=== PATIENT | female | born 1955 | race Caucasian/White ===

== ENCOUNTER → 2016-11-23 | Outpatient (CLI) | payer BC ==
[~2016-11-23] MED LIST: MULT-963 PO
--- OUTSIDE RECORDS SUMMARY | 2016-11-23 13:20 | XMS REPORT ---
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
--- NOTE | 2016-11-23 19:26 | Diagnostic Imaging Report ---
Bilateral screening mammogram. The current study was also evaluated with a Computer Aided Detection (CAD) system. INDICATION: Screening. No current complaints stated on the questionnaire. COMPARISON: 11/22/15. FINDINGS: The breasts are composed of scattered fibroglandular densities. There are scattered benign-appearing calcifications. Allowing for technique and positional differences, no suspicious change is seen. IMPRESSION: No significant change. ACR BI-RADS Category 2: Benign findings. Result letter will be mailed to the patient. Note: At least 10% of breast cancer is not imaged by mammography. Dictated by: Dictated on workstation # [id number]
== END ==
LOC: RAD 13:16
PROVIDERS: ATTEND Family Medicine
DX: Z12.31 Encounter for screening mammogram for malignant neoplasm of breast (principal)

== ENCOUNTER → 2018-10-22 | Outpatient (CLI) | payer BC ==
--- NOTE | 2018-10-22 12:51 | Diagnostic Imaging Report ---
INDICATION: Routine screening. COMPARISON: 11/23/2016 and 11/22/2015. TECHNIQUE: 2D and 3D bilateral screening mammography was performed with CAD. FINDINGS: Scattered fibroglandular densities are identified bilaterally. There are benign calcifications bilaterally. No mass or malignant appearing microcalcifications are seen. The axillae are unremarkable. IMPRESSION: No mammographic features suspicious for malignancy are identified. ACR BI-RADS Category 2: Benign findings. Result letter will be mailed to the patient. Note: At least 10% of breast cancer is not imaged by mammography. Dictated by: Dictated on workstation # [id number]
== END ==
LOC: RAD 10:52
PROVIDERS: ATTEND Family Medicine
DX: Z12.31 Encounter for screening mammogram for malignant neoplasm of breast (principal)
CPT/HCPCS: 77067

== ENCOUNTER 2019-02-07 05:28 | Emergency (ER) | payer BC ==
[~2019-02-07] VITALS: Ht 149.9 cm; Wt 81.6 kg
[2019-02-07 05:59] LABS: BASOPHILS % (AUTO) 0 % (0-10); EOSINOPHILS # (AUTO) 0.2 10^3/uL (0.0-0.3); EOSINOPHILS % (AUTO) 2 % (0-10); HEMATOCRIT 39 % (35-52); HEMOGLOBIN 13.2 G/DL (11.5-16.0); LYMPHOCYTES # (AUTO) 2.8 X 10^3 (1.0-4.0); LYMPHOCYTES % (AUTO) 34 % (12-44); MEAN CORPUSCULAR HEMOGLOBIN 32 PG (25-34); MEAN CORPUSCULAR HGB CONC 34 G/DL (32-36); MEAN CORPUSCULAR VOLUME 94 FL (80-99); MEAN PLATELET VOLUME 9.3 FL (7.4-10.4); MONOCYTES # (AUTO) 0.9 X 10^3 (0.0-1.0); MONOCYTES % (AUTO) 10 % (0-12); NEUTROPHILS # (AUTO) 4.5 X 10^3 (1.8-7.8); NEUTROPHILS % (AUTO) 54 % (42-75); PLATELET COUNT 327 10^3/uL (130-400); RED CELL DISTRIBUTION WIDTH 12.7 % (10.0-14.5); WHITE BLOOD COUNT 8.4 10^3/uL (4.3-11.0)
[2019-02-07] MEDS ORDERED: ASPIRIN 81 MG CHEW (CHILDREN'S ASA) PO ONE (06:00)
[2019-02-07] MEDS ORDERED: NITROGLYCERIN 0.4 MG SL TABS BTL 25'S SL PRN (06:00)
[2019-02-07 06:10] LABS: ALANINE AMINOTRANSFERASE 23 U/L (0-55); ALBUMIN 4.3 GM/DL (3.2-4.5); ALKALINE PHOSPHATASE 64 U/L (40-136); BILIRUBIN,TOTAL 0.7 MG/DL (0.1-1.0); BUN/CREATININE RATIO 13; CALCIUM 9.7 MG/DL (8.5-10.1); CARBON DIOXIDE 24 MMOL/L (21-32); CHLORIDE 107 MMOL/L (98-107); GFR ESTIMATED > 60; GLUCOSE 101 MG/DL (70-105); MAGNESIUM 1.9 MG/DL (1.8-2.4); POTASSIUM 3.9 MMOL/L (3.6-5.0); SODIUM 141 MMOL/L (135-145); TOTAL PROTEIN 7.2 GM/DL (6.4-8.2)
[2019-02-07] MEDS ORDERED: FAMOTIDINE 20 MG (PEPCID) TABLET PO STA (06:13)
[2019-02-07] MEDS ORDERED: ANTACID SUSP 30 ML UDC (MYLANTA) PO ONE (06:15)
[2019-02-07] MEDS ORDERED: LIDOCAINE 2% VISCOUS 15 ML UDC PO ONE (06:15)
[2019-02-07 06:17] LABS: MYOGLOBIN SERUM 30.8 NG/ML (10.0-92.0)
[2019-02-07 06:31] LABS: PROTHROMBIN TIME PATIENT 12.7 SEC (12.2-14.7)
--- NOTE | 2019-02-07 06:33 | ED Chest Pain ---
General Chief Complaint: Chest Pain Stated Complaint: CP,BACK PAIN Nursing Triage Note: CHEST PAIN, NAUSEA Nursing Sepsis Screen: No Definite Risk Source: patient Exam Limitations: no limitations (MICHEL YOUSSEF MD) History of Present Illness Date Seen by Provider: Feb 07, 2019 Time Seen by Provider: 05:41 Initial Comments This 63-year-old woman presents to emergency room with complaints of pain, predominantly in the right lower chest, radiating to her back and across her shoulder blades. This started around 23:00. It is a little worse with deep breathing. She has had some dizziness intermittently in the past couple weeks, most notably when she closes her eyes in the shower. It seems worse with movement. She denies shortness of air or cough. She has had some nausea without vomiting. The character of her pain is sharp and rated as 8 out of 10. She denies any tobacco use. She has not had any recent travel or procedures. She took aspirin 81 mg prior to arrival. She does have a family history of heart disease. Her father at age 44 of an FL and her mother had an FL at age 64. Her primary care providers Dr. Perez. She denies any prior history of heart or lung problems. (MICHEL YOUSSEF MD) Allergies and Home Medications Allergies Coded Allergies: No Known Drug Allergies (Unverified , 10/08/12) Patient Home Medication List Home Medication List Reviewed: Yes (MICHEL YOUSSEF MD) Review of Systems Review of Systems Constitutional: no symptoms reported EENTM: No Symptoms Reported Respiratory: See HPI Cardiovascular: See HPI Gastrointestinal: See HPI Genitourinary: No Symptoms Reported Musculoskeletal: no symptoms reported Skin: no symptoms reported Psychiatric/Neurological: No Symptoms Reported Endocrine: No Symptoms Reported Hematologic/Lymphatic: No Symptoms Reported (MICHEL YOUSSEF MD) Past Ncxjvhm-Cuzyff-Zlreln Hx Past Med/Social Hx: Reviewed and Corrections made (MICHEL YOUSSEF MD) Patient Social History Alcohol Use: Denies Use Recreational Drug Use: No Smoking Status: Never a Smoker 2nd Hand Smoke Exposure: No Recent Foreign Travel: No Contact w/Someone Who Travel: No Recent Infectious Disease Expo: No Recent Hopitalizations: No (MICHEL YOUSSEF MD) Immunizations Up To Date Tetanus Booster (TDap): Unknown (MICHEL YOUSSEF MD) Seasonal Allergies Seasonal Allergies: No (MICHEL YOUSSEF MD) Past Medical History Surgeries: No Respiratory: No Cardiac: No Neurological: No : No Reproductive Disorders: No 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 oz. 81.176599iv; BMI Method:Stated General Appearance: No Apparent Distress, WD/WN HEENT: PERRL/EOMI, Normal ENT Inspection, Pharynx Normal Neck: Normal Inspection Respiratory: Chest Non Tender, Lungs Clear, Normal Breath Sounds, No Accessory Muscle Use, No Respiratory Distress Cardiovascular: Regular Rate, Rhythm, No Edema, No Murmur, Normal Peripheral Pulses Gastrointestinal: Normal Bowel Sounds, Non Tender, Soft Extremity: Normal Capillary Refill, Normal Inspection, Non Tender, No Calf Tenderness, No Pedal Edema Neurologic/Psychiatric: Alert, Oriented x3, No Motor/Sensory Deficits, Normal Mood/Affect, adjuster piano action II-XII Norm as Tested Skin: Normal Color, Warm/Dry (MICHEL YOUSSEF MD) Progress/Results/Core Measures Results/Orders Lab Results Laboratory Tests Test 02/07/19 05:40 Range/Units White Blood Count 8.4 4.3-11.0 10^3/uL Red Blood Count 4.19 L 4.35-5.85 10^6/uL Hemoglobin 13.2 11.5-16.0 G/DL Hematocrit 39 35-52 % Mean Corpuscular Volume 94 80-99 FL Mean Corpuscular Hemoglobin 32 25-34 PG Mean Corpuscular Hemoglobin Concent 34 32-36 G/DL Red Cell Distribution Width 12.7 10.0-14.5 % Platelet Count 327 130-400 10^3/uL Mean Platelet Volume 9.3 7.4-10.4 FL Neutrophils (%) (Auto) 54 42-75 % Lymphocytes (%) (Auto) 34 12-44 % Monocytes (%) (Auto) 10 0-12 % Eosinophils (%) (Auto) 2 0-10 % Basophils (%) (Auto) 0 0-10 % Neutrophils # (Auto) 4.5 1.8-7.8 X 10^3 Lymphocytes # (Auto) 2.8 1.0-4.0 X 10^3 Monocytes # (Auto) 0.9 0.0-1.0 X 10^3 Eosinophils # (Auto) 0.2 0.0-0.3 10^3/uL Basophils # (Auto) 0.0 0.0-0.1 10^3/uL Prothrombin Time 12.7 12.2-14.7 SEC INR Comment 1.0 0.8-1.4 Activated Partial Thromboplast Time 36 H 24-35 SEC Sodium Level 141 135-145 MMOL/L Potassium Level 3.9 3.6-5.0 MMOL/L Chloride Level 107 98-107 MMOL/L Carbon Dioxide Level 24 21-32 MMOL/L Anion Gap 10 5-14 MMOL/L Blood Urea Nitrogen 12 7-18 MG/DL Creatinine 0.90 0.60-1.30 MG/DL Estimat Glomerular Filtration Rate > 60 BUN/Creatinine Ratio 13 Glucose Level 101 70-105 MG/DL Calcium Level 9.7 8.5-10.1 MG/DL Corrected Calcium 9.5 8.5-10.1 MG/DL Magnesium Level 1.9 1.8-2.4 MG/DL Total Bilirubin 0.7 0.1-1.0 MG/DL Aspartate Amino Transf (AST/SGOT) 21 5-34 U/L Alanine Aminotransferase (ALT/SGPT) 23 0-55 U/L Alkaline Phosphatase 64 40-136 U/L Myoglobin 30.8 10.0-92.0 NG/ML Troponin I < 0.028 <0.028 NG/ML Total Protein 7.2 6.4-8.2 GM/DL Albumin 4.3 3.2-4.5 GM/DL Lipase 38 8-78 U/L (SUSANA CUBA) My Orders Orders - SUSANA CUBA Lidocaine 2% Viscous 15 Ml (Xylocaine Vi (02/07/19 06:15) Famotidine Tablet (Pepcid Tablet) (02/07/19 06:13) Antacid Suspension (Mylanta Suspension (02/07/19 06:15) Lipase (02/07/19 06:13) Ct Abdomen/Pelvis W (02/07/19 06:13) Iohexol Injection (Omnipaque 350 Mg/Ml 1 (02/07/19 07:15) Ns (Ivpb) (Sodium Chloride 0.9% Ivpb Bag (02/07/19 07:15) (SUSANA CUBA) Medications Given in ED Current Medications Medications Dose Ordered Sig/Katerina Route Start Time Stop Time Status Last Admin Dose Admin Al Hydrox/Mg Hydrox/Simethicone 30 ml ONCE ONCE PO 02/07/19 06:15 02/07/19 06:18 DC 02/07/19 06:21 30 ML Aspirin 243 mg ONCE ONCE PO 02/07/19 06:00 02/07/19 06:01 DC 02/07/19 06:02 243 MG Iohexol 100 ml ONCE ONCE IV 02/07/19 07:15 02/07/19 07:16 DC 02/07/19 07:10 100 ML Lidocaine HCl 15 ml ONCE ONCE PO 02/07/19 06:15 02/07/19 06:18 DC 02/07/19 06:21 15 ML Nitroglycerin 0.4 mg UD PRN SL 02/07/19 06:00 02/07/19 06:03 0.4 MG Sodium Chloride 80 ml ONCE ONCE IV 02/07/19 07:15 02/07/19 07:16 DC 02/07/19 07:10 80 ML (SUSANA CUBA) Vital Signs/I&O 02/07/19 02/07/19 02/07/19 05:32 05:32 05:32 Temp 98.4 Pulse 76 Resp 14 B/P (MAP) 163/84 (110) Pulse Ox 97 97 O2 Delivery Nasal Cannula Nasal Cannula Nasal Cannula O2 Flow Rate 2.0 2.0 2.00 (SUSANA CUBA) Blood Pressure Mean: 110 Progress Progress Note : Time: 06:33 Progress Note Nitroglycerin did not alleviate her pain. Care of this patient is being transitioned to Dr. Cuba at this time. (MICHEL YOUSSEF MD) Progress Note : Time: 07:29 Progress Note The nitroglycerin did nothing for her pain but she says the GI cocktail took the pain away. (SUSANA CUBA) Initial ECG Impression Date: Feb 07, 2019 Initial ECG Impression Time: 05:37 Initial ECG Rate: 76 Initial ECG Rhythm: Normal Sinus Initial ECG Intervals: Normal Initial ECG Impression: Normal Comment Normal sinus rhythm with no ST elevation or depression. No abnormal intervals or axis deviation. (MICHEL YOUSSEF MD) Diagnostic Imaging Diagonstic Imaging: Xray Plain Films/CT/US/NM/MRI: chest Comments NAME: HUY JAY [facility] REC#: [id number] PT STATUS: REG ER : 1955 PHYSICIAN: MICHEL YOUSSEF MD ADMIT DATE: 02/07/19/ER Signed Date of Exam:02/07/19 CHEST 1 VIEW, AP/PA ONLY Indication: Chest pain Portable chest 5:59 AM Heart size and pulmonary vascularity are normal. Lungs are clear. There are no effusions or pneumothoraces. Impression: Negative chest Dictated by: Dictated on workstation # [id number] Dict: 02/07/19 0649 Trans: 02/07/19 0650 [id number] Interpreted by: MAURICE PRECIADO MD Electronically signed by: MAURICE PRECIADO MD 02/07/19 0650 Reviewed: Reviewed by Me Diagonstic Imaging: CT (with contrast) Plain Films/CT/US/NM/MRI: abdomen, pelvis Comments NAME: HUY JAY [facility] REC#: [id number] PHYSICIAN: SUSANA CUBA MD CC: MAURICE PRECIADO MD; SUSANA CUBA Page 1 of 1 RADIOLOGY REPORT [facility] [place] CC: MAURICE PRECIADO MD; SUSANA CUAB Page 1 of 1 RADIOLOGY REPORT NAME: HUY JAY [facility] REC#: [id number] PT STATUS: REG ER : 1955 PHYSICIAN: SUSANA CUBA MD ADMIT DATE: 02/07/19/ER Signed Date of Exam: 02/07/19 CT ABDOMEN/PELVIS W PROCEDURE: CT abdomen and pelvis with contrast. TECHNIQUE: Multiple contiguous axial images were obtained through the abdomen and pelvis after administration of intravenous contrast. Auto Exposure Controls were utilized during the CT exam to meet ALARA standards for radiation dose reduction. INDICATION: Epigastric and chest pain The lung bases are clear. Liver appears normal. The gallbladder is unremarkable. Pancreas appears normal. Spleen is not enlarged. Kidneys and adrenals appear normal. Aorta and IVC appear normal. There is no lymphadenopathy. Small bowel is not dilated. The appendix is normal. Colon appears normal. Uterus is present. Adnexa are unremarkable. There is no intraperitoneal free air or free fluid Impression: Negative CT abdomen and pelvis Dictated by: Dictated on workstation # [id number] Dict: 02/07/19 0738 Trans: 02/07/19 0739 Interpreted by: MAURICE PRECIADO MD Electronically signed by: MAURICE PRECIADO MD 02/07/1939 Reviewed: Reviewed by Me (SUSANA CUBA) Departure Impression Primary Impression: Chest pain Qualified Codes: R07.9 - Chest pain, unspecified Additional Impressions: Indigestion Vertigo Disposition: HOME, SELF-CARE Condition: Improved Departure-Patient Inst. Decision time for Depature: 07:47 (SUSANA CUBA) Referrals: LUIS ANTONIO EPPS MD, FLOYD R MD (PCP/Family) Primary Care Physician Patient Instructions: Chest Pain (DC) Add. Discharge Instructions: Please call Dr. 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 Start taking omeprazole 20-40 mg daily for the next 4 weeks. Start taking the Carafate half an hour before meals and at bedtime for the next 2 weeks. Follow-up with Dr. Perez discussed your vertigo and chest pain. All discharge instructions reviewed with patient and/or family. Voiced understanding. Scripts Omeprazole (Omeprazole) 40 Mg Capsule. 40 MG PO DAILY for 30 Days, #30 CAP 0 Refills Prov: SUSANA CUBA 02/07/19 Sucralfate (Carafate) 1 Gm Tablet 1 GM PO QIDACHS for 14 Days, #56 TAB 0 Refills Prov: SUSANA CUBA 02/07/19 MICHEL YOUSSEF MD Feb 07, 2019 06:33 SUSANA CUBA Feb 07, 2019 06:56
--- NOTE | 2019-02-07 06:52 | Diagnostic Imaging Report ---
Indication: Chest pain Portable chest 5:59 AM Heart size and pulmonary vascularity are normal. Lungs are clear. There are no effusions or pneumothoraces. Impression: Negative chest Dictated by: Dictated on workstation # [id number]
[2019-02-07] MEDS ORDERED: NS 100 ML (IVPB) BAG IV ONE (07:15)
[2019-02-07] MEDS ORDERED: IOHEXOL 350 MG/ML 100 ML (OMNIPAQUE 350) VIAL IV ONE (07:15)
--- NOTE | 2019-02-07 07:42 | Diagnostic Imaging Report ---
PROCEDURE: CT abdomen and pelvis with contrast. TECHNIQUE: Multiple contiguous axial images were obtained through the abdomen and pelvis after administration of intravenous contrast. Auto Exposure Controls were utilized during the CT exam to meet ALARA standards for radiation dose reduction. INDICATION: Epigastric and chest pain The lung bases are clear. Liver appears normal. The gallbladder is unremarkable. Pancreas appears normal. Spleen is not enlarged. Kidneys and adrenals appear normal. Aorta and IVC appear normal. There is no lymphadenopathy. Small bowel is not dilated. The appendix is normal. Colon appears normal. Uterus is present. Adnexa are unremarkable. There is no intraperitoneal free air or free fluid Impression: Negative CT abdomen and pelvis Dictated by: Dictated on workstation # [id number]
[2019-02-07] MEDS ORDERED: OMEP40CA36 PO ×2 (07:56→08:09)
[2019-02-07] MEDS ORDERED: SUCR1TAB36 PO ×2 (07:56→08:09)
[2019-02-07 08:02] VITALS: BP 133/84
== END 2019-02-07 08:12 | disposition home or self-care (01) ==
LOC: EDUNIT# 05:28 → ER 05:30
DX: R07.9 Chest pain, unspecified (principal); K30 Functional dyspepsia; R42 Dizziness and giddiness; Z82.49 Family history of ischemic heart disease and other diseases of the circulatory system
CPT/HCPCS: 36415; 71045; 74177; 80053; 83690; 83735; 83874; 84484; 85025; 85610; 85730; 93005; 93041

== ENCOUNTER → 2019-12-05 | Outpatient (CLI) | payer BC ==
[~2019-12-05] MED LIST changes: +OMEP40CA27 PO; +SUCR1TAB36 PO
--- NOTE | 2019-12-05 12:15 | Diagnostic Imaging Report ---
INDICATION: Routine screening. Comparison is made with prior mammogram from 10/22/2018 and 11/23/2016. 2-D and 3-D bilateral screening mammography was performed with CAD. Both breasts are heterogeneously dense, limiting the sensitivity of mammography. The parenchymal pattern appears to be stable. No mass or malignant appearing microcalcifications are seen. There are benign calcifications. The axillae are unremarkable. IMPRESSION: BI-RADS Category 2 No mammographic features suspicious for malignancy are identified. ACR BI-RADS Category 2: Benign findings. Result letter will be mailed to the patient. Note: At least 10% of breast cancer is not imaged by mammography. Dictated by: Dictated on workstation # [id number]
== END ==
LOC: RAD 09:37
PROVIDERS: ATTEND Family Medicine
DX: Z12.31 Encounter for screening mammogram for malignant neoplasm of breast (principal)
CPT/HCPCS: 77067

== ENCOUNTER → 2021-06-09 | Outpatient (CLI) | payer BC ==
[~2021-06-09] MED LIST changes: -OMEP40CA27 PO; +OMEP40CA6 PO
--- NOTE | 2021-06-10 10:17 | Diagnostic Imaging Report ---
Indication: Digital screening with CAD. Compared: 11/2019, 10/2018 and 11/2016. Findings: Scattered fibroglandular densities are stable. No mass, architectural distortions, spiculated lesion or suspicious calcifications. Impression: Stable negative mammogram BI-RADS Category 1 ACR BI-RADS Category 1: Negative. Result letter will be mailed to the patient. Note: At least 10% of breast cancer is not imaged by mammography. Dictated by: Dictated on workstation # [id number]
== END ==
LOC: RAD 11:00
PROVIDERS: ATTEND Nurse Practitioner Family
DX: Z12.31 Encounter for screening mammogram for malignant neoplasm of breast (principal)
CPT/HCPCS: 77063; 77067

== ENCOUNTER → 2023-02-02 | Outpatient (CLI) | payer MEDICARE, OTHER ==
--- NOTE | 2023-02-02 11:18 | Diagnostic Imaging Report ---
Indication: Routine screening. Comparison is made with prior mammograms from 06/09/2021 and 12/05/2019. 2-D and 3-D bilateral screening mammography was performed with CAD. Scattered fibroglandular densities are identified bilaterally. The parenchymal pattern is stable. No mass or malignant-appearing microcalcifications are seen. Axillae are unremarkable. IMPRESSION: BI-RADS Category 1 No mammographic features suspicious for malignancy are identified. ACR BI-RADS Category 1: Negative. Result letter will be mailed to the patient. Note: At least 10% of breast cancer is not imaged by mammography. Dictated by: Dictated on workstation # [id number]
== END ==
LOC: RAD 09:55
PROVIDERS: ATTEND Nurse Practitioner Family
DX: Z12.31 Encounter for screening mammogram for malignant neoplasm of breast (principal)
CPT/HCPCS: 77063; 77067

== ENCOUNTER → 2023-03-06 | Outpatient (CLI) | payer MEDICARE, OTHER ==
--- NOTE | 2023-03-06 11:39 | Diagnostic Imaging Report ---
INDICATION: Postmenopausal state. COMPARISON: None available FINDINGS: AP Spine L1-L4: [BMD (g/cm2): 1.141] [T-Score: -0.5] [Z-Score: 0.7] [BMD Previous: na] [BMD % Change: na] LT Hip Neck: [BMD (g/cm2): 0.845] [T-Score: -1.4] [Z-Score: -0.2] LT Hip Total: [BMD (g/cm2):0.955] [T-Score:-0.4] [Z-Score: 0.5] [BMD Previous: na] [BMD % Change: na] RT Hip Neck: [BMD (g/cm2):0.814] [T-Score:-1.6] [Z-Score:-0.4] RT Hip Total: [BMD (g/cm2):0.953] [T-score:-0.4] [Z-Score:0.5] [BMD Previous:na] [BMD % Change:na] *Indicates significant change from prior examination based on 95% confidence level. World Health Organization criteria for BMD interpretation classify patients as Normal (T-score at or above -1.0), Osteopenic (T-score between -1.0 and -2.5) or Osteoporotic (T-score at or below -2.5). LIMITATIONS AND MODIFICATION: None. FRACTURE RISK (FRAX SCORE): The ten year probability of (%): Major Osteoporotic Fracture: [9.0] Hip Fracture: [1.1] IMPRESSION: 1. Osteopenia (Low bone mass). 2. Baseline examination. 3. See below National Osteoporosis Foundation guidelines on when to potentially initiate pharmacologic therapy. Based on the National Osteoporosis Foundation Guidelines, pharmacologic treatment should be initiated in any of the following, unless clinical conditions suggest otherwise: * Any patient with prior fragility fracture of the hip or vertebrae. A spine fracture indicates 5X risk for subsequent spine fracture and 2X risk for subsequent hip fracture. * Osteoporosis (T-score <-2.5). * Postmenopausal women and men age 50 and older with low bone mass/osteopenia (T-score between -1.0 and -2.5) by DXA and 10-year major osteoporotic fracture greater than 20% or a 10-year probability of hip fracture greater than 3%. These fracture risks are supplied above in the FRAX score, if applicable. * Clinician judgement and/or patient preferences may indicate treatment for people with 10-year fracture probabilities above or below these levels. Dictated by: Dictated on workstation # [id number]
== END ==
LOC: RAD 10:56
PROVIDERS: ATTEND Family Medicine
DX: M85.89 Other specified disorders of bone density and structure, multiple sites (principal); Z78.0 Asymptomatic menopausal state
CPT/HCPCS: 77080